=== PATIENT | male | born 1995 | race Caucasian/White ===

== ENCOUNTER 2020-11-04 15:46 | Outpatient (RCR) | payer OTHER, MEDICAID, SELFPAY | END 2020-11-26 23:59 | disposition home or self-care (01) | LOC: NS 15:46 | PROVIDERS: PCP Family Medicine; Visit Provider Nurse Practitioner Family | DX: Z71.3 Dietary counseling and surveillance (principal); E66.01 Morbid (severe) obesity due to excess calories | CPT/HCPCS: 97802 ==